=== PATIENT | male | born 1960 | race Caucasian/White ===

== ENCOUNTER 2020-06-25 08:00 | Day surgery (SDC) | payer OTHER ==
[~2020-06-25] VITALS: Ht 177.8 cm; Wt 87.0 kg
[~2020-06-25 08:00] MED LIST: CIPRO500 MG PO; FLOMAX0.4 MG PO; GLUCOPHAGE500 MG PO
--- NOTE | 2020-06-25 13:07 | NUR ---
06/25/20 1307 Nanette Salmon 1243 PT ARRIVED IN PACU NON RESPONSIVE TO NOXIOUS STIMULI WITH OPA IN PLACE. 1301 PT REACTIVE. OPA REMOVED. 1305 PT REPOSITIONED SELF TO L SIDE. NO C/O'S.
--- NOTE | 2020-06-25 13:46 | NUR ---
LE 1320: PT ARRIVES TO FROM PACU. HE IS SLIGHTLY DROWSY. HE IS GIVEN SUGAR FREE PUDDING AND WATER. CALL LIGHT WITHIN REACH. AT THE BEDSIDE. NO ADDITIONAL NEEDS AT THIS TIME.
--- NOTE | 2020-06-25 13:49 | OR ---
[facility] [address] [place], [place] [address] Signed DATE OF OPERATION: 06/25/2020 SURGEON: Krysta Gilliam MD PREOPERATIVE DIAGNOSIS: Prostate cancer. POSTOPERATIVE DIAGNOSIS: 1. Prostate cancer. 2. Normal cystourethroscopy. NAMES OF PROCEDURES: Diagnostic cystourethroscopy. ANESTHESIA: General. ESTIMATED BLOOD LOSS: None. COMPLICATIONS: None. SPECIMENS: None. DRAINS: None. INDICATIONS FOR PROCEDURE: Mr. Luther is a 59-year-old gentleman who is a patient of Dr. Jose G Avalos, who was recently diagnosed with prostate cancer. He elected to undergo brachytherapy for definitive treatment of his gland confined disease. He is already undergone brachy therapy and he is now ready to undergo cystourethroscopy to rule out any potential aberrant seed placement into the bladder or urethra. OPERATIVE FINDINGS: Cystoscopy reveals no evidence of any suspicious masses, lesions, or stones. Bilateral ureteral orifices are in their normal anatomic location effluxing clear urine. There is no evidence of any obvious present within the bladder or prostatic urethra. Electronically Signed By: KRYSTA GILLIAM MD 06/25/20 1349 PATIENT NAME: GISELA LUTHER OPERATIVE REPORT DATE OF : 56 REPORT #: [id number] PHYSICIAN: KRYSTA GILLIAM MD PCP: REJI QUEEN MD REPORT IS CONFIDENTIAL AND NOT TO BE RELEASED WITHOUT AUTHORIZATION [facility] [address] [place] [address] Signed Retroflexion of the scope also reveals no evidence of any brachytherapy seeds present at the bladder neck. DESCRIPTION OF PROCEDURE: After informed consent was obtained, the patient was taken back to the operating room. He was placed in the high dorsal lithotomy position and he underwent brachytherapy seed placement with Dr. Jose G Avalos. Please refer to his operative note for details regarding that procedure. Once the seed placement was complete, he was re-prepped and draped and his indwelling Costa catheter was removed. Using a 30-degree lens on a 22.5 rigid introducer, a rigid cystoscope was inserted through his urethra and into his bladder under direct visualization. Panendoscopic views of the bladder, bladder neck, prostatic urethra and membranous bulbar and pendulous urethra was performed. Please see the above findings. Overall, cystourethroscopy revealed no evidence of any aberrant seed placement during brachytherapy. I left approximately 100-200 mL within the patient's bladder to make it easier for him to perform a voiding trial at the end of the procedure. The was then slowly removed and the procedure was complete. The patient tolerated the procedure well, which went without any complication. Since his brachytherapy procedure is now complete, Anesthesia will now begin to awake him from general anesthetic. MD MILLY Leong/DANIELE /[id number] Copies: ~ Electronically Signed By: KRYSTA GILLIAM MD 06/25/20 1349 PATIENT NAME: GISELA LUTHER OPERATIVE REPORT DATE OF : 56 REPORT #: [id number] PHYSICIAN: KRYSTA GILLIAM MD PCP: REJI QUEEN MD REPORT IS CONFIDENTIAL AND NOT TO BE RELEASED WITHOUT AUTHORIZATION
--- NOTE | 2020-06-25 15:21 | NUR ---
LE 1455: PT IS BLADDER SCANNED FOR APPROX 254ML OF URINE IN THE BLADDER. PT IS ASSISTED UP OOB TO THE BATHROOM WHERE HE IS ABLE TO VOID 225ML OF YELLOW URINE. PT REPORTS FEELLING LIKE HE HAS EMPTIED HIS BLADDER. THE PT'S BLADDER IS SCANNED AGAIN FOR NO APPARENT RESIDUAL VOLUME. PT INDICATES THAT HE WOULD LIKE TO GO HOME AT THIS TIME. HE IS EDUCATED ON HOW TO BEST DRESS HIMSELF AND TO OPEN THE CURTAIN WHEN READY. LE 1510: PT IS GIVEN VERBAL DC INSTRUCTIONS WITH PRESENT. THEY BOTH VERBALIZE UNDERSTANDING. QUESTIONS ARE ASKED AND ANSWERED. THE PT IS TAKEN TO CAR VIA , HE IS ABLE TO TRANSFER HIMSELF FROM WC TO CAR.
--- NOTE | 2020-06-26 18:46 | OR ---
[facility] [address] [place], [place] [address] Signed DATE OF OPERATION: 06/25/2020 SURGEON: Miguelito Avalos MD, PH.D. PREOPERATIVE DIAGNOSIS: Prostate adenocarcinoma. POSTOPERATIVE DIAGNOSIS: Prostate adenocarcinoma. PROCEDURE: Rectal ultrasound-guided implantation of radioactive iodine-125 seeds into the prostate gland. ANESTHESIA: General. ESTIMATED BLOOD LOSS: Minimal. COMPLICATIONS: None. ANTIBIOTICS: IV levofloxacin. INDICATIONS FOR PROCEDURE: Dev Martini is a 59-year-old gentleman, who was recently diagnosed with a stage IIa, [place] grade 3+4=7, PSA 5.8 prostate adenocarcinoma. He has elected to receive a radioactive seed implant as monotherapy. Prescription dose: 145 Gy with iodine-125 seeds with 0.336 millicurie seeds. DESCRIPTION OF OPERATIVE PROCEDURE: Following induction of adequate anesthesia, the patient was placed in the treatment planning dorsal lithotomy position. The perineum was prepped with Betadine and a Costa catheter was inserted into the bladder without difficulty. The scrotum was elevated onto the abdominal wall and secured with Ioban. The fixation support system was fixed to the table and the ultrasound probe was affixed to the system. Transrectal ultrasound examination of the prostate was performed with a 6 MHz probe, taking sagittal and Electronically Signed By: MIGUELITO AVALOS 06/26/20 1846 PATIENT NAME: DEV SOSA OPERATIVE REPORT DATE OF : 56 REPORT #: [id number] PHYSICIAN: MIGUELITO AVALOS PCP: REJI QUEEN MD REPORT IS CONFIDENTIAL AND NOT TO BE RELEASED WITHOUT AUTHORIZATION [facility] [address] [place], [place] [address] Signed transverse views to localize the prostate gland and to make sure the images conform to the preoperative plan. Once the proper angulation and position were obtained, the apparatus was fixed in position. The apparatus was then draped and the template was attached. Then, individual preloaded needles were inserted, one needle at a time through the template and perineal skin, and into the prostate gland according to the preoperative plan. Each individual needle was identified on the ultrasound images and inserted into position as close as possible to the pretreatment plan on axial images. Two anchor needles were placed initially to help stabilize the prostate gland. Then, starting anteriorly, one row of needles were placed first. The proper depth of each needle was then confirmed on sagittal images and also by measuring the distance from the template to the hub of each needle with a ruler. Then, needles were slowly withdrawn with the stylet in place, so that the stranded seeds were placed in the prostate gland in the proper position. Then, subsequently, rows of needles were placed, one at a time with placement of all the seeds from each row before proceeding to the next row. AP pelvic x-rays were taken periodically to confirm the proper position of the radioactive seeds. The seeds from the anchor needles were deployed close to the end of the case, so that the needles could provide stabilization. The treatment plan called for 82 seeds to be implanted, and a total of 82 seeds were placed into the prostate gland utilizing 22 needles for a total activity of 27.570 millicuries. There was no bony interference encountered during the procedure. Following the insertion of the seeds, an AP pelvic x-ray was taken, which revealed seeds to be in the proper position within the pelvis. The patient then had a cystoscopy performed by Dr. Gilliam (see separate operative report) with no evidence of needle trauma or any seeds seen in the urethra or bladder. The patient tolerated the procedure well and was taken to the recovery room in good condition. He will have a voiding trial prior to discharge. 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 He was told to phone our office if he has any difficulties or problems. CONDITION: Stable. Electronically Signed By: MIGUELITO AVALOS 06/26/20 1846 PATIENT NAME: DEV SOSA OPERATIVE REPORT DATE OF : 56 REPORT #: [id number] PHYSICIAN: MIGUELITO AVALOS PCP: REJI QUEEN MD REPORT IS CONFIDENTIAL AND NOT TO BE RELEASED WITHOUT AUTHORIZATION [facility] [address] [place] [id number] Signed Miguelito Avalos MD, PH.D. TOSHIA/MODL /[id number] cc: MD Donald Leong MD Robert G Johnson, MD Copies: KRYSTA GILLIAM MD, JOHN MD JOHNSON, ROBERT D DMD ~ Electronically Signed By: MIGUELITO AVALOS 06/26/20 1846 PATIENT NAME: DEV SOSA OPERATIVE REPORT DATE OF : 56 REPORT #: [id number] PHYSICIAN: MIGUELITO AVALOS PCP: REJI QUEEN MD REPORT IS CONFIDENTIAL AND NOT TO BE RELEASED WITHOUT AUTHORIZATION
== END 2020-06-25 15:15 | disposition home or self-care (01) ==
LOC: DS 08:00 → OPS 08:00
PROVIDERS: ATTEND Radiology Radiation Oncology
DX: C61 Malignant neoplasm of prostate (principal); E11.9 Type 2 diabetes mellitus without complications; Z79.84 Long term (current) use of oral hypoglycemic drugs; Z79.82 Long term (current) use of aspirin
CPT/HCPCS: 00902; 72170; 77470; C2638; J1100; J1885; J1956; J2001; J2250; J2405; J2704; J3010; J7121